=== PATIENT | female | born 1970 | race Two or more races ===

== ENCOUNTER 2017-03-26 15:00 | Emergency (ER) | payer SELFPAY ==
[~2017-03-26] VITALS: Ht 149.9 cm; Wt 90.7 kg
[2017-03-26] MEDS ORDERED: IV NORMAL SALINE 1000ML BAG 1,000 ML IV SCH (15:56)
[2017-03-26] MEDS ORDERED: ONDANSETRON PF 4 MG/2 ML VIAL. IV ONE (16:00)
[2017-03-26 16:03] LABS: BASO % 1 % (0-3); EOS % 3 % (0-3); HEMATOCRIT 39.4 % (36.0-47.0); HEMOGLOBIN 13.6 g/dL (12.0-15.5); LYMPH % 31 % (24-48); MEAN CORPUSCULAR HEMOGLOBIN 31 pg (25-35); MEAN CORPUSCULAR HGB CONC 35 g/dL (31-37); MEAN CORPUSCULAR VOLUME 88 fL (79-100); MONO % 7 % (0-9); NEUT % 59 % (31-73); PLATELET COUNT 242 x10^3/uL (140-400); RED BLOOD COUNT 4.46 x10^6/uL (3.50-5.40); RED CELL DISTRIBUTION WIDTH 13.3 % (11.5-14.5); WHITE BLOOD COUNT 6.7 x10^3/uL (4.0-11.0)
[2017-03-26] MEDS: fentaNYL PF VIAL 100 MCG/2 ML VIAL IV PRN ×2 (16:09→19:35)
[2017-03-26 16:34] LABS: CALCIUM 9.4 mg/dL (8.5-10.1); CREATININE 0.6 mg/dL (0.6-1.0); GFR 106.3; POTASSIUM 4.1 mmol/L (3.5-5.1)
[2017-03-26 16:38] LABS: ALBUMIN 3.7 g/dL (3.4-5.0); ALBUMIN/GLOBULIN RATIO 1.1 (1.0-1.7); TOTAL BILIRUBIN 0.5 mg/dL (0.2-1.0); TOTAL PROTEIN 7.1 g/dL (6.4-8.2)
[2017-03-26 16:53] LABS: BILIRUBIN,URINE NEGATIVE (NEG); GLUCOSE,URINE >=1000 mg/dL (NEG); NITRITE,URINE NEGATIVE (NEG); PROTEIN,URINE NEGATIVE (NEG-TRACE); UROBILINOGEN,URINE 0.2 mg/dL (0.2 mg/dL)
[2017-03-26 16:58] LABS: BACTERIA,URINE FEW /HPF (0-FEW); RBC,URINE 0 /HPF (0-2); SQUAMOUS EPITHELIAL CELL,UR MOD /LPF
[2017-03-26 17:50] LABS: NEG OBC UR NEG; POS OBC UR POS
[2017-03-26] MEDS ORDERED: IOHEXOL 300 MG/ML 75 ML VIAL IV ONE (18:45)
[2017-03-26] MEDS ORDERED: CONTRAST GIVEN MC PRN (18:45)
--- NOTE | 2017-03-26 19:34 | PHYS DOC ---
Past Medical History Past Medical History: Diabetes-Type II Past Surgical History: Cholecystectomy, , Other Additional Past Surgical Histo: hernia repair Alcohol Use: None Drug Use: None Adult General Chief Complaint Chief Complaint: ABDOMINAL PAIN HPI HPI Patient is a 47 year old female who presents with complaint of abdominal pain. Patient states that she has had intermittent symptoms over the past 2 weeks but has started to get worsening symptoms over the past 3 days. Patient notes that she measured a fever of 100.3F 2 days ago but states that she has not had any fevers today. Patient states that her pain is towards the middle of her abdomen. Patient has had history of ventral hernia repair many years ago. Patient states that the pain does not radiate. Patient has had associated diarrhea but denies nausea or vomiting. Patient currently rates her pain as 9 out of 10. Patient has not taken any medications to help with symptoms at this time. Review of Systems Review of Systems Constitutional: Denies fever or chills [] Eyes: Denies change in visual acuity, redness, or eye pain [] HENT: Denies nasal congestion or sore throat [] Respiratory: Denies cough or shortness of breath [] Cardiovascular: Denies chest pain or edema [] GI: Abdominal pain, diarrhea, denies nausea or vomiting [] : Denies dysuria or hematuria [] Musculoskeletal: Denies back pain or joint pain [] Integument: Denies rash or skin lesions [] Neurologic: Denies headache, focal weakness or sensory changes [] Current Medications Current Medications Current Medications Medications (Trade) Dose Ordered Sig/Eddie Start Time Stop Time Status Last Admin Dose Admin Fentanyl Citrate (Fentanyl 2ml Vial) 50 mcg PRN Q15MIN PRN 03/26/17 16:00 03/27/17 15:59 03/26/17 19:35 50 MCG Info (Do NOT chart on this entry -- for MONITORING) 1 each PRN DAILY PRN 03/26/17 18:45 03/28/17 18:44 Iohexol (Omnipaque 300 Mg/ml) 75 ml 1X ONCE 03/26/17 18:45 03/26/17 18:46 DC 03/26/17 18:54 75 ML Ondansetron HCl (Zofran) 4 mg 1X ONCE 03/26/17 16:00 03/26/17 16:01 DC 03/26/17 16:07 4 MG Sodium Chloride 1,000 ml @ 1,000 mls/hr Q1H 03/26/17 15:56 03/26/17 16:55 DC 03/26/17 16:06 1,000 MLS/HR Allergies Allergies Allergies Coded Allergies Type Severity Reaction Last Updated Verified No Known Drug Allergies 08/29/14 No Physical Exam Physical Exam Constitutional: Alert, obese, afebrile, appears in mild to moderate discomfort. [] HENT: Normocephalic, atraumatic, bilateral external ears normal, oropharynx moist, no oral exudates, nose normal. [] Eyes: PERRLA, EOMI, conjunctiva normal, no discharge. [] Neck: Normal range of motion, no tenderness, supple, no stridor. [] Cardiovascular:Heart rate regular rhythm, no murmur [] Lungs & Thorax: Bilateral breath sounds clear to auscultation [] Abdomen: Bowel sounds normal, soft, periumbilical tenderness to palpation with mild guarding, no rebound tenderness, no masses, no pulsatile masses. [] Skin: Warm, dry, no erythema, no rash. [] Back: No tenderness, no CVA tenderness. [] Extremities: No tenderness, no cyanosis, no clubbing, ROM intact, no edema. [] Neurologic: Alert and oriented X 3, normal motor function, normal sensory function, no focal deficits noted. [] Current Patient Data Vital Signs Vital Signs Date Time Temp Pulse Resp B/P (MAP) Pulse Ox O2 Delivery O2 Flow Rate FiO2 03/26/17 19:35 19 97 Room Air 03/26/17 19:18 86 125/75 (92) 03/26/17 15:35 98.2 98.2 Lab Values Laboratory Tests Test 03/26/17 15:10 03/26/17 15:40 03/26/17 15:41 Urine Collection Type Unknown Urine Color Yellow Urine Clarity Cloudy Urine pH 6.0 Urine Specific Bolton >=1.030 Urine Protein Negative mg/dL (NEG-TRACE) Urine Glucose (UA) >=1000 mg/dL (NEG) Urine Ketones (Stick) Trace mg/dL (NEG) Urine Blood Negative (NEG) Urine Nitrite Negative (NEG) Urine Bilirubin Negative (NEG) Urine Urobilinogen Dipstick 0.2 mg/dL (0.2 mg/dL) Urine Leukocyte Esterase Negative (NEG) Urine RBC 0 /HPF (0-2) Urine WBC 11-20 /HPF (0-4) Urine Squamous Epithelial Cells Mod /LPF Urine Bacteria Few /HPF (0-FEW) Urine Mucus Mod /LPF White Blood Count 6.7 x10^3/uL (4.0-11.0) Red Blood Count 4.46 x10^6/uL (3.50-5.40) Hemoglobin 13.6 g/dL (12.0-15.5) Hematocrit 39.4 % (36.0-47.0) Mean Corpuscular Volume 88 fL (79-100) Mean Corpuscular Hemoglobin 31 pg (25-35) Mean Corpuscular Hemoglobin Concent 35 g/dL (31-37) Red Cell Distribution Width 13.3 % (11.5-14.5) Platelet Count 242 x10^3/uL (140-400) Neutrophils (%) (Auto) 59 % (31-73) Lymphocytes (%) (Auto) 31 % (24-48) Monocytes (%) (Auto) 7 % (0-9) Eosinophils (%) (Auto) 3 % (0-3) Basophils (%) (Auto) 1 % (0-3) Neutrophils # (Auto) 3.9 x10^3uL (1.8-7.7) Lymphocytes # (Auto) 2.0 x10^3/uL (1.0-4.8) Monocytes # (Auto) 0.4 x10^3/uL (0.0-1.1) Eosinophils # (Auto) 0.2 x10^3/uL (0.0-0.7) Basophils # (Auto) 0.0 x10^3/uL (0.0-0.2) Sodium Level 141 mmol/L (136-145) Potassium Level 4.1 mmol/L (3.5-5.1) Chloride Level 104 mmol/L (98-107) Carbon Dioxide Level 29 mmol/L (21-32) Anion Gap 8 (6-14) Blood Urea Nitrogen 18 mg/dL (7-20) Creatinine 0.6 mg/dL (0.6-1.0) Estimated GFR (Cockcroft-Gault) 106.3 BUN/Creatinine Ratio 30 (6-20) H Glucose Level 215 mg/dL (70-99) H Calcium Level 9.4 mg/dL (8.5-10.1) Total Bilirubin 0.5 mg/dL (0.2-1.0) Aspartate Amino Transferase (AST) 18 U/L (15-37) Alanine Aminotransferase (ALT) 59 U/L (14-59) Alkaline Phosphatase 197 U/L (46-116) H Total Protein 7.1 g/dL (6.4-8.2) Albumin 3.7 g/dL (3.4-5.0) Albumin/Globulin Ratio 1.1 (1.0-1.7) Lipase 146 U/L (73-393) Urine Test Negative (NEG) Laboratory Tests 03/26/17 15:40 Laboratory Tests 03/26/17 15:40 EKG EKG Interpreted by me: Heart rate 91, sinus rhythm, normal intervals, normal axis, no acute ST/T-wave abnormalities present [] Radiology/Procedures Radiology/Procedures Two-view abdominal x-rays interpreted by me: Distention of large intestine and pelvis, no free air under the diaphragm, no small intestine distention [facility] [address] [place] [address] IMAGING REPORT Signed PATIENT: KATHYA ONYOLA ACCOUNT: [id number] : 1970 LOCATION: ER AGE: 47 SEX: F EXAM STATUS: REG ER ORD. PHYSICIAN: NUNU BENAVIDES MD REASON: lower abdominal pain PROCEDURE: CT ABD PELV W/ IV CONTRST ONLY ADDENDUM Addendum: Patient's previous CT scan dated 12/04/2011 is now available. No interval change since previous exam. Electronically signed by: Zehra Persaud MD (03/26/2017 7:56 PM) DICTATED AND SIGNED BY: ZEHRA PERSAUD MD DATE: 03/26/171954 CC: NUNU BENAVIDES MD; NO PCP ~ Exam performed: CT abdomen and pelvis with contrast. HISTORY: Abdominal pain for 2 weeks. History of abdominal hernia repair and previous x5, cholecystectomy DATE OF SERVICE: 03/26/2017 COMPARISON: Not available. Reportedly there is a previous CT abdomen and pelvis, however is not available for comparison. TECHNIQUE: Contiguous axial requisitions are obtained through the abdomen and pelvis during intravenous administration of 75 cc of Omnipaque 300. Sagittal and coronal reformatted images are obtained and reviewed. FINDINGS: The lung bases are clear. The visualized heart is normal. The liver, spleen and pancreas are normal. Cholecystectomy. Both adrenal glands and bilateral kidneys are normal. The right kidney is slightly malrotated. No hydronephrosis. Aorta is normal in caliber. The small and large bowel loops are nondilated and unremarkable. Appendix is unremarkable. Urinary bladder is partially decompressed. The uterus is anteverted. No adnexal masses seen. Bones are normal. IMPRESSION: No acute intra-abdominal or pelvic process seen. PQRS Compliance Statement: One or more of the following individualized dose reduction techniques were utilized for this examination: 1. Automated exposure control 2. Adjustment of the mA and/or kV according to patient size 3. Use of iterative reconstruction technique Electronically signed by: Zehra Persaud MD (03/26/2017 7:46 PM) DICTATED and SIGNED BY: ZEHRA PERSAUD MD DATE: 03/26/171918 CC: NUNU BENAVIDES MD; NO PCP ~ [] Course & Med Decision Making Course & Med Decision Making Pertinent Labs and Imaging studies reviewed. (See chart for details) Patient was started on IV fluids, fentanyl, and Zofran. On reevaluation, patient 's symptoms have improved. Etiology of patient's pain does not appear to be acutely surgical. Patient will be started on Zofran and hydrocodone for symptomatic control. Advise follow-up in 3-5 days with patient's primary doctor and return to emergency department for any worsening symptoms. Patient voiced understanding and in agreement with treatment plan. Dragon Disclaimer Dragon Disclaimer This electronic medical record was generated, in whole or in part, using a voice recognition dictation system. Departure Departure Impression: Primary Impression: Abdominal pain Additional Impression: Diarrhea Disposition: 01 HOME, SELF-CARE Condition: IMPROVED Referrals: NO PCP (PCP) Patient Instructions: Abdominal Pain, Diarrhea Additional Instructions: Follow-up with your primary doctor in 3-5 days. Return to the emergency department for any worsening symptoms. Scripts Hydrocodone/Apap 5-325 (NORCO 5-325 TABLET) 1 Each Tablet 1 TAB PO Q4-6HRS Y for PAIN, #15 TAB Prov: NUNU BENAVIDES MD 03/26/17 Ondansetron (ZOFRAN ODT) 4 Mg Tab.rapdis 1 TAB SL Q8HRS Y for NAUSEA/VOMITING, #15 TAB Prov: NUNU BENAVIDES MD 03/26/17 Problem Qualifiers Primary Impression: Abdominal pain Abdominal location: periumbilical Qualified Codes: R10.33 - Periumbilical pain Additional Impression: Diarrhea Diarrhea type: presumed infectious Qualified Codes: A09 - Infectious gastroenteritis and colitis, unspecified NUNU BENAVIDES MD Mar 26, 2017 19:34
--- NOTE | 2017-03-26 19:49 | RAD ---
Exam performed: CT abdomen and pelvis with contrast. HISTORY: Abdominal pain for 2 weeks. History of abdominal hernia repair and previous x5, cholecystectomy DATE OF SERVICE: 03/26/2017 COMPARISON: Not available. Reportedly there is a previous CT abdomen and pelvis, however is not available for comparison. TECHNIQUE: Contiguous axial requisitions are obtained through the abdomen and pelvis during intravenous administration of 75 cc of Omnipaque 300. Sagittal and coronal reformatted images are obtained and reviewed. FINDINGS: The lung bases are clear. The visualized heart is normal. The liver, spleen and pancreas are normal. Cholecystectomy. Both adrenal glands and bilateral kidneys are normal. The right kidney is slightly malrotated. No hydronephrosis. Aorta is normal in caliber. The small and large bowel loops are nondilated and unremarkable. Appendix is unremarkable. Urinary bladder is partially decompressed. The uterus is anteverted. No adnexal masses seen. Bones are normal. IMPRESSION: No acute intra-abdominal or pelvic process seen. PQRS Compliance Statement: One or more of the following individualized dose reduction techniques were utilized for this examination: 1. Automated exposure control 2. Adjustment of the mA and/or kV according to patient size 3. Use of iterative reconstruction technique Electronically signed by: Zehra Persaud MD (03/26/2017 7:46 PM)
[2017-03-26] MEDS ORDERED: HYDR-971 PO (20:40)
[2017-03-26] MEDS ORDERED: ONDA4TAB10 SL (20:40)
[2017-03-26 20:50] VITALS: BP 111/62
--- NOTE | 2017-03-27 07:56 | EKG ---
[facility] [address] [place] [address] Test Date: 2017-03-26 Test Time: 16:06:07 Pat Name: KATHYA NOYOLA Department: Room: Gender: F Dietitian Therapeutic: : 1970 Requested By: NUNU BENAVIDES Order Number: [id number] Reading MD: Mirtha Moody Measurements Intervals [place] Rate: 91 P: 40 OK: 146 QRS: 56 QRSD: 76 T: 30 QT: 332 QTc: 410 Interpretive Statements SINUS RHYTHM NORMAL ECG RI6.01 Unconfirmed report No previous ECG available for comparison Electronically Signed On 03-29-2017 22:26:42 CDT by Mirtha Moody
--- NOTE | 2017-03-27 08:28 | RAD ---
Abdomen, 2 views, 03/26/2017: History: Abdominal pain There is a moderate amount of gas and stool scattered throughout the colon in a nonspecific pattern. No free air is evident in the abdomen. Surgical clips are present in the right upper quadrant. No organomegaly is seen. Lower pelvic calcifications are compatible with phleboliths. There are mild degenerative changes in the spine. IMPRESSION: No acute abdominal abnormality is detected.
== END 2017-03-26 21:15 | disposition home or self-care (01) ==
LOC: ER 15:00
DX: R10.33 Periumbilical pain (principal); R19.7 Diarrhea, unspecified; R50.9 Fever, unspecified; E11.9 Type 2 diabetes mellitus without complications; E66.9 Obesity, unspecified; Z68.41 Body mass index [BMI] 40.0-44.9, adult; Z90.49 Acquired absence of other specified parts of digestive tract; Z98.890 Other specified postprocedural states
CPT/HCPCS: 36415; 74020; 74177; 80053; 81001; 81025; 83690; 85027; 87086; 93005; 96361; 96374; 96375; 96376; 99285; J2405; J3010; J7030; Q9967

== ENCOUNTER 2017-07-22 17:39 | Emergency (ER) | payer BC ==
[~2017-07-22] VITALS: Ht 165.1 cm; Wt 98.0 kg
[~2017-07-22 17:39] MED LIST: HYDR-971 PO; ONDA4TAB10 SL
[2017-07-22 17:46] VITALS: BP 161/78
--- NOTE | 2017-07-22 18:27 | PHYS DOC ---
Past Medical History Past Medical History: Diabetes-Type II Past Surgical History: Cholecystectomy, , Other Additional Past Surgical Histo: hernia repair Alcohol Use: None Drug Use: None Adult General Chief Complaint Chief Complaint: FACE PROBLEM HPI HPI Patient is a 47 year old female who presents ambulatory to the ED with the complaint of problem with the right side of her face and headache which began July 20. Patient first noted pain behind her right ear on Sunday and on the right side of her posterior head. Then she noted that her right side of her face is not moving right and also some numbness on the right side of her tongue. This has gotten worse since Sunday. She's never had this before. Patient has a history of type 2 diabetes and she takes metformin. She also takes another medication that she doesn't know the name of it. She denies hypertension. Denies history of CVA. Patient speaks Lithuanian, the powerhouse helper line was used to obtain the history. She does not have any family members here with her. Review of Systems Review of Systems Constitutional: Denies fever or chills [] Eyes: Denies change in visual acuity HENT: As in history of present illness : She is postmenopausal Neurologic: As in history of present illness Current Medications Current Medications Current Medications Medications (Trade) Dose Ordered Sig/Eddie Start Time Stop Time Status Last Admin Dose Admin Acyclovir (Zovirax) 800 mg 1X ONCE 07/22/17 19:15 07/22/17 19:16 DC 07/22/17 19:21 800 MG Prednisone (Prednisone) 60 mg 1X ONCE 07/22/17 19:15 07/22/17 19:16 DC 07/22/17 19:20 60 MG Allergies Allergies Allergies Coded Allergies Type Severity Reaction Last Updated Verified No Known Drug Allergies 08/29/14 No Physical Exam Physical Exam Constitutional: Well developed, well nourished, no acute distress, non-toxic appearance. Alert, ambulatory, mentating normally. HENT: Normocephalic, atraumatic, bilateral external ears normal, oropharynx moist, no oral exudates, nose normal. Right EAC and TM normal in appearance. No tenderness or skin color change or other abnormality posterior to the right ear. Eyes: PERRLA, EOMI, conjunctiva normal, no discharge. [] Neck: Normal range of motion, no stridor. [] Cardiovascular:Heart rate regular rhythm, no murmur [] Lungs & Thorax: Bilateral breath sounds clear to auscultation [] Skin: Warm, dry, no erythema, no rash. [] Extremities: No tenderness, no cyanosis, no clubbing, ROM intact, no edema. [] Neurologic: Alert and oriented X 3. There is mild to moderate right facial paralysis including the forehead. The patient is able to close her right eyelid. There is no tongue deviation. No pronator drift. Upper and lower extremity strength is normal bilaterally. The patient ambulated to the exam room with a normal gait. Her speech is normal. Current Patient Data Vital Signs Vital Signs Date Time Temp Pulse Resp B/P (MAP) Pulse Ox O2 Delivery O2 Flow Rate FiO2 07/22/17 17:46 98.2 98 18 161/78 (105) 97 Room Air 98.2 EKG EKG [] Radiology/Procedures Radiology/Procedures CT scan of the head read by the radiologist. No acute findings.[] Course & Med Decision Making Course & Med Decision Making Pertinent Labs and Imaging studies reviewed. (See chart for details) 47-year-old female presents with apparent Schafer's palsy that began a bit over 48 hours ago. She is complaining of a fair amount of pain behind her right ear and on the right posterior head. I believe this is related to Schafer's palsy but we' ll check a CT scan. CT scan is normal. I discussed diagnosis and treatment of Schafer's palsy with the patient using the powerhouse helper phone. The patient was provided information in Lithuanian via the use of [employer] translate. Specific instructions were given for taping the eyelid and using lubricants for eye protection. See instructions for plan. [] Dragon Disclaimer Dragon Disclaimer This electronic medical record was generated, in whole or in part, using a voice recognition dictation system. Departure Departure Impression: Primary Impression: Schafer's palsy Disposition: 01 HOME, SELF-CARE Condition: STABLE Referrals: NO PCP (PCP) Patient Instructions: Schafer's Palsy Additional Instructions: Es importante asegurarse de que hess suri no se seca debido a que no parpadea con tanta frecuencia, y hess produccin de lgrimas no es werner buena, esta condicin puede causar que hess suri se seque. [place] puede lesionar el suri. Comprar gotas para los ojos lubricantes para usar misti el da. Ponga tonia gota cada 1-2 horas misti todo el da. Adems, compre un ungento para los ojos y aplquelo a la hora de acostarse. Si hess suri no navdeep todo el winter, cinta que cerr a la hora de acostarse. Compre cinta adhesiva para pieles sensibles. Aplique el ungento, despus cierre hess prpado, despus la cinta se cerr segn lo representado. Por la ma marilyn, tire suavemente de la cinta comenzando por la parte superior (por la eric) y tire hacia abajo suavemente. No tire de la parte superior de la kelvin, tire hacia abajo hacia la boca cuando quite la cinta. La parlisis de Schafer puede durar varias semanas o incluso meses. Proteja hess suri de esta manera hasta que hess suri se navdeep normalmente de nuevo. Hemos prescrito prednisona, que es un medicamento anti-inflamatorio. Se le administr la primera dosis de Prednisone en el servicio de urgencias. Hess prxima dosis debe llegar maana por la maana. Prednisone ruy que hess nivel de azcar en la morgan alto mientras usted lo est tomando. Debe volver a la normalidad para usted despus de terminar de tomarlo. Lilliam muchos lquidos mientras luz maria la prednisona. Hemos prescrito Aciclovir, que es un medicamento antiviral. A veces la par lisis de Schafer puede ser casued por un virus. Te dieron tu primera dosis aqu en el departamento de urgencias. Bruin tonia dosis ms antes de acostarse. Francisca medicamento es 5 veces al da, aproximadamente cada 2-3 horas mientras est despierto. Scripts Acyclovir (ACYCLOVIR) 800 Mg Tablet 1 TAB PO 5XDAY for Schafer's palsy, #35 TAB Prov: BISI ROONEY MD 07/22/17 Prednisone (PREDNISONE) 20 Mg Tablet 60 MG PO DAILY for Schafer's palsy for 10 Days, #24 TAB 3 pills daily in the morning for 6 days, then 2 pills daily for 2 days then 1 pill daily for 2 days. Prov: BISI ROONEY MD 07/22/17 BISI ROONEY MD Jul 22, 2017 18:27
--- NOTE | 2017-07-22 18:48 | RAD ---
CT Head W/O Contrast: History: rt miller's palsy, pain rt sd of head and occip area x 1 wk, no priors Comparison: none Axial images were obtained without contrast. The boyd and white matter appears normal and symmetrical for the patients age. There is no mass effect, extraaxial fluid collections or hydrocephalus. There is no gross bleed. There is no focal loss of boyd-white matter distinction to suggest acute ischemia, i.e. stroke. Impression: No acute findings. RS Compliance Statement: One or more of the following individualized dose reduction techniques were utilized for this examination: 1. Automated exposure control 2. Adjustment of the mA and/or kV according to patient size 3. Use of iterative reconstruction technique Electronically signed by: Ko Pedroza III, MD (07/22/2017 6:45 PM) [facility]
[2017-07-22] MEDS ORDERED: PRED20TA PO (19:07)
[2017-07-22] MEDS ORDERED: ACYC800T PO (19:07)
[2017-07-22] MEDS ORDERED: predniSONE 20 MG TABLET PO ONE (19:15)
[2017-07-22] MEDS ORDERED: ACYCLOVIR 200 MG CAPSULE. PO ONE (19:15)
== END 2017-07-22 19:30 | disposition home or self-care (01) ==
LOC: ER 17:39
DX: G51.0 Bell's palsy (principal); E11.9 Type 2 diabetes mellitus without complications
CPT/HCPCS: 70450; 99284; J7512

== ENCOUNTER → 2020-03-23 | Outpatient (CLI) | payer BC ==
[~2020-03-23] MED LIST changes: +ACYC800T PO; +HYDR-3164 PO; -HYDR-971 PO; +LIDOCAINE 1% Multi-Dose 20 ML VIAL. INJ ONE; +PRED20TA PO
--- NOTE | 2020-03-23 17:46 | RAD ---
Examination: 1. Ultrasound-guided left breast biopsy of a 1.5 cm mass at the 12:00 position 3 cm from the nipple. 2. Ultrasound-guided left breast biopsy of a 4 cm mass at the 11:00 position 6 cm from the nipple. 3. Ultrasound-guided core needle biopsy of an enlarged left axillary lymph node. 4. Left digital postprocedure mammogram. INDICATION: 50-year-old woman referred for imaging guided core needle biopsy of 2 suspicious masses in the left breast and of suspicious left axillary lymph node. COMPARISON: Left breast ultrasound and bilateral digital diagnostic mammogram of 03/08/2020. TECHNIQUE AND FINDINGS: Informed consent was obtained and an appropriate procedural pause observed. Mauritanian-language interpretive services was utilized over the telephone. In separate successive procedures using standard sterile technique, ultrasound guidance and local anesthesia using fresh equipment for each procedure, the following was pursued: For the 12:00 mass, two 12-gauge core biopsy samples were obtained and an S-shaped biopsy marker was deployed in the lesion. Samples were stored in formalin and hemostasis ensured with direct breast compression for 10 minutes. For the 11:00 mass, two 12-gauge core biopsy samples were obtained and an open padlock shaped marker was deployed in the mass. Hemostasis was ensured with direct breast compression for 10 minutes. For the right axillary lymph node, two 14-gauge core biopsy samples were obtained and an S-shaped biopsy marker was deployed in the biopsied lymph node. Hemostasis was ensured with direct compression for 10 minutes. Following achievement of satisfactory hemostasis, the puncture sites were dressed in post procedure mammogram was obtained in the CC and MLO projections. This shows heterogeneously dense breast parenchyma with biopsy marker is in all 3 targeted lesions as expected. No significant postbiopsy hematoma is apparent. IMPRESSION: Successful ultrasound-guided core needle biopsy of 2 suspicious masses in the left breast and of a suspicious left axillary lymph node as described with satisfactory biopsy marker placement documented on postprocedure mammogram. No apparent complications. Pathology results are pending. An addendum will be issued once pathology results become available. Electronically signed by: Jo Ann Mccracken MD (03/23/2020 5:43 PM) [id number]
--- NOTE | 2020-03-25 17:06 | PATHOLOGY ---
[facility] Accession Number: [id number] . 01 Material submitted: . PART A: breast - LEFT BREAST 12:00 3CMFN. Modifiers: left, 12:00 PART B: breast - LEFT BREAST TISSUE 11:00 6 CMFN. Modifiers: left, 11:00 PART C: axillary tail of breast - LEFT AXILLARY MASS-NODE. Modifiers: left . 02 Diagnosis: A. Breast tissue, left breast mass 12:00 needle biopsies: - INVASIVE DUCTAL CARCINOMA, HIGH-GRADE. SEE COMMENT. . B. Breast tissue, left breast mass 11:00 needle biopsies: - INVASIVE DUCTAL CARCINOMA, HIGH-GRADE. SEE COMMENT. . C. Lymph node, left axillary mass/node needle biopsies: - METASTATIC ADENOCARCINOMA. [facility] 03/24/2020 1813 Local . 02 Comment: Sections of the left breast mass at 12:00 needle biopsy reveal an invasive high grade mammary carcinoma. The tumor shows little tubule formation and is associated with a reactive desmoplastic stroma. The tumor shows moderate nuclear pleomorphism and prominent mitotic activity. The tumor measures up to 1.1 cm in greatest dimension on the glass slide. There are no tumor associated calcifications. There is no lymphovascular tumor invasion. . Sections of the left breast mass at 11:00 needle biopsy also reveal an invasive high grade mammary carcinoma. The tumor shows little tubule formation and is associated with a reactive desmoplastic stroma. The tumor shows moderate to marked nuclear pleomorphism and prominent mitotic activity. There is focal tumor necrosis. The tumor measures up to 1.6 cm in greatest dimension on the glass slide. There are no tumor associated calcifications. There is no lymphovascular tumor invasion. . Sections of the left axillary mass/node biopsy show extensive replacement of lymph node by metastatic adenocarcinoma, consistent with breast origin. . The case is also examined by Dr. Munguia, who concurs with the diagnoses. Breast prognostic studies will be obtained, the results of which will be reported separately. (JPM/db; 03/24/2020) . 02 Electronically signed: . River Abarca MD, Pathologist NPI- [id number] . 01 Gross description: . A. The specimen is received in formalin labeled "Juno Kennedy, left breast 12:00 3 cm FN" and consists of 2 yellow-werner fibroadipose breast needle cores measuring 1.2 cm in length and 0.2 cm in diameter. They were obtained at 13:52 and placed in formalin at 13:54. The cold ischemic time is 2 minutes and total time in formalin is greater than 6 hours and less than 72. They are entirely submitted in A1. . B. The specimen is received in formalin labeled "Juno Kennedy, left breast 11:00 6 cm FN" and consists of 2 yellow-werner fibroadipose breast needle cores measuring 1.6 cm in length and 0.2 cm in diameter. They are obtained at 14:02 and placed in formalin at 14:04. The cold ischemic time is 2 minutes and total time in formalin is greater than 6 hours and less than 72. They are entirely submitted in B1. . C. The specimen is received in formalin labeled "Juno Kennedy, left axillary node" and consists of 2 yellow-werner fibroadipose needle cores measuring 1.2 and 1.4 cm in length and 0.2 cm in diameter. They were obtained at 14:21 and placed in formalin at 14:23. The cold ischemic time is 2 minutes and total time in formalin is greater than 6 hours and less than 72. They are entirely submitted in C1. ([facility]; 03/23/2020) JFQ/JFQ 03/23/2020 1910 Local . 02 Pathologist provided ICD-10: C50.912, C77.3 . 02 CPT . 273819, 342780, [id number] Specimen Comment: A courtesy copy of this report has been sent to [phone], [phone] Specimen Comment: [id number] Specimen Comment: Report sent to / DR TEMPLETON Performed at: [address], [place], [place] [id number] MD Andre Mcpherson MD Phone: [phone] Performed at: [address] [id number] MD River Abarca MD Phone: [phone]
== END | disposition home or self-care (01) ==
LOC: US 12:35
PROVIDERS: ATTEND Physician Assistant Medical
DX: N63.20 Unspecified lump in the left breast, unspecified quadrant (principal); C50.912 Malignant neoplasm of unspecified site of left female breast; C77.3 Secondary and unspecified malignant neoplasm of axilla and upper limb lymph nodes
CPT/HCPCS: 19083; 19084; 38505; 76942; 77065; 88305; 88361; C1713; 19081